=== PATIENT | female | born 1955 | race Caucasian/White ===

== ENCOUNTER 2016-04-07 19:23 | Emergency (ER) | payer OTHER ==
[~2016-04-07] VITALS: Ht 165.1 cm; Wt 47.7 kg
[2016-04-07 19:43] VITALS: BP 149/76; PULSE 78; RESP 18; O2SAT 94
[2016-04-07 20:00] LABS: BASOPHILS % (AUTO) 0.3 % (0-3); EOSINOPHILS % (AUTO) 1.2 % (0-5); MONOCYTES % (AUTO) 9.2 % (4-12); Mean Corpuscular Hemoglobin 31.4 pg (27.0-35.0); Mean Corpuscular Volume 92.3 fL (81-100); NEUTROPHILS % (AUTO) 76.8 % (40-74); Platelet Count 213 bil/L (150-400)
[2016-04-07 20:22] LABS: TROPONIN T < 0.010 ug/L (0.0-0.011)
--- NOTE | 2016-04-07 20:23 | ED.REPORT ---
HPI-Chest Pain 40 and Over Date of Service Apr 07, 2016 ED Provider: Kavin Woods MD Pt is a 60 y/o relatively healthy female presenting to the ED c/o waxing and waning substernal chest pressure onset 1330 today. She c/o associated SOB, nausea, dizziness, lightheadedness, chills, fatigue, dyspnea on exertion, mild cough. Pt denies fever, diaphoresis, vomiting, abdominal pain. She finished a course of antibiotics for bacterial sinusitis 1 week ago. She is a former long time smoker who quit 3 weeks ago. Nursing Notes Stated Complaint: DIZZY,NAUSEA,PRESSURE IN STERNUM Chief Complaint: Chest Pain Nursing Notes Reviewed: Yes Allergies: Coded Allergies: No Known Allergies (Unverified , 04/07/16) General Time Seen by MD: 20:23 Chief Complaint Chest pressure Hx Obtained From: Patient Arrived By: Walk-in Sudden in Onset?: Yes Onset Occurred: 5 - 8 hours ago Symptom Duration: Waxes and wanes Location: : Substernal Quality: Pressure Radiation: : Does not radiate Migration/Movement: Reports: None Severity: Current: Mild Severity: Maximum: Mild Similar Sx Previous: No Risk Factors HEART Score HEART for MACE: Mod index of susp (1), Low index of susp (0), Normal ECG (0), Age 45 - 65 (1), 1-2 CAD risk factors (1), < or = to NL troponin (0) HEART for MACE Score: 0-3 (low risk 0.9%-1.7%) Past Medical History Past Medical History Denies Past Surgical History None reported Smoking History Former Smoker Ambulatory Status Independent Review of Systems Constitutional: Reports: Chills, Fatigue, Denies: Fever Respiratory: Reports: Non-productive cough Cardiovascular: Reports: Chest pain, Dyspnea on exertion GI: Reports: Nausea, Denies: Abdominal pain, Diarrhea, Vomiting Skin: Denies Diaphoresis Neurologic: Reports: Dizziness, Lightheaded Complete sys rev & neg: except as marked. Physical Exam Initial Vital Signs Vital Signs (First) Date Time Temp Pulse Resp B/P Pulse Ox O2 Delivery O2 Flow Rate FiO2 04/07/16 19:43 37.1 78 18 149/76 94 Room Air Initial VS: Reviewed Head / Eyes: Atraumatic, Normocephalic, PERRL ENT: Mucous membranes moist, Conjunctiva normal, No scleral icterus Neck: Supple, Full range of motion Extremities: Vascular intact, Neuro intact, No swelling, No tenderness Skin: Warm, Dry, No cyanosis Neurologic: Alert, Oriented, Nonfocal Psychiatric: Mood/affect normal, Behavior normal, Normal thought content General/Constitutional: Awake, Alert, No acute distress, Well appearing, Cooperative, Not toxic appearing Temp at 21:21 = 37.1 C Respiratory / Chest: Atraumatic, No respiratory distress, No retractions, No stridor, No chest tenderness, No chest wall deformity, No crepitus Very fine rales at bases medially, bilaterally Cardiovascular: Heart rate NL, Regular rhythm, Heart sounds NL, No gallop, No murmurs, No rubs, Cap refill not delayed, Peripheral circulation NL Abdomen: Atraumatic, Soft, Non-tender, No guarding, No rebound, No distention, No palpable mass Interpretation & Diagnostics Lab Results Interpretation Result Diagram: 04/07/16 1950 04/07/16 1950 Test 04/07/16 19:50 White Blood Count 7.5th/mm3 (3.8-10.1) Red Blood Count 4.55mil/mm3 (3.90-5.20) Hemoglobin 14.3g/dL (12.0-15.6) Hematocrit 42.0% (35.0-46.0) Mean Corpuscular Volume 92.3fL (81-100) Mean Corpuscular Hemoglobin 31.4pg (27.0-35.0) Mean Corpuscular Hemoglobin Concent 34.0% (32.0-37.0) Red Cell Distribution Width 12.9% (12.3-15.4) Platelet Count 213bil/L (150-400) Neutrophils (%) (Auto) 76.8% (40-74) Lymphocytes (%) (Auto) 12.4% (14-46) Monocytes (%) (Auto) 9.2% (4-12) Eosinophils (%) (Auto) 1.2% (0-5) Basophils (%) (Auto) 0.3% (0-3) Sodium Level 139mEq/L (134-144) Potassium Level 3.9mEq/L (3.5-5.2) Chloride Level 99mEq/L (97-108) Carbon Dioxide Level 25mmol/L (18-29) Blood Urea Nitrogen 8mg/dL (6-24) Creatinine 0.70mg/dL (0.57-1.00) Estimat Glomerular Filtration Rate 123mL/min (>59) Glucose Level 117mg/dL (60-99) Calcium Level 9.6mg/dL (8.5-10.1) Magnesium Level 2.1mg/dL (1.6-2.6) Total Bilirubin 0.2mg/dL (0.0-1.2) Aspartate Amino Transf (AST/SGOT) 21U/L (0-50) Alanine Aminotransferase (ALT/SGPT) 20U/L (0-32) Alkaline Phosphatase 91U/L (25-165) Troponin T < 0.010ug/L (0.0-0.011) Total Protein 7.3g/dL (6.4-8.4) Albumin 4.5g/dL (3.4-5.0) Hold Pardo Top Tube Received (Received) ECG Interpretation ECG Interpretation: Sinus rhythm rate 78 LAFB Probable LVH Time: 19:45 Interpreted by: ED physician Normal ECG Interpretation: No acute ischemic changes X-Ray Chest Interpretation Chest Xray Interpretation: IMPRESSION: 1. Left basilar infiltrate and atelectasis. 2. COPD. Dictated by: Maddy Alvarez M.D. on 04/07/2016 at 20:22 Approved by: Maddy Alvarez M.D. on 04/07/2016 at 20:24 View: Portable, 1 view Interpretation / Wet Read by: Interpret - Radiologist Re-Eval/Medical Decision Time of Eval: 21:26 Re-Evaluation/Progress Note: Pt rechecked. Discussed imaging and lab results. Informed pt of plan for treatment. Pt understands and agrees with plan for treatment. F/U instructions and RTER warnings given. All questions addressed. Counseled Regarding: Diagnosis, Lab results, Need for follow-up, When/why to return to ED Discharge & Departure Primary Impression: Pneumonia involving left lung Pneumonia type: due to unspecified organism Lung location: lower lobe of lung Qualified Code: J18.9 - Pneumonia, unspecified organism Additional Impression: COPD (chronic obstructive pulmonary disease) COPD type: unspecified COPD Qualified Code: J44.9 - Chronic obstructive pulmonary disease, unspecified Disposition: Home Discharge Condition All VS Reviewed: Yes Condition: Stable Patient Instructions: Chest Pain (ED), Chronic Obstructive Pulmonary Disease ( ED) Additional Instructions: Your chest x-ray today showed signs of COPD and a small density in the left lower lung which could represent pneumonia. Your labs and EKG were normal. There is no sign of heart attack. I am prescribing Doxycycline for the possible pneumonia. Take the full course as directed. Take 800 mg Ibuprofen every 8 hours as needed for pain. Return to the emergency department if you experience increased work of breathing , increased chest pain, high fever, profound weakness, or for other new or worsening symptoms. Follow up with a primary care doctor later this week if you do not seem to be improving. Referrals: [facility] Scribe Attestation Portions of this note were transcribed by Manjit Ferrer. I, Dr. Woods personally performed the history, physical exam and medical decision-making; I reviewed and confirmed the accuracy of the information in the transcribed note. Signed by Mary Lou Welch, 04/07/16 2199 Kavin Woods MD Apr 07, 2016 20:23 MANJIT FERRER Apr 07, 2016 20:30
--- NOTE | 2016-04-07 20:26 | DRSVH ---
PROCEDURE: X-RAY CHEST ONE VIEW, PORTABLE ([id number]) INDICATIONS: CHEST PAIN TECHNIQUE: One view of the chest was acquired. COMPARISON: None. FINDINGS: Surgical changes and devices: None. Lungs and pleura: There is hyperinflation consistent with COPD. Left basilar infiltrate and atelecta sis. No pleural effusions or pneumothorax. Mediastinum: Mediastinal contours appear normal. Heart size is normal. Bones and chest wall: No suspicious bony lesions. Overlying soft tissues appear unremarkable. IMPRESSION: 1. Left basilar infiltrate and atelectasis. 2. COPD. Dictated by: Maddy Alvarez M.D. on 04/07/2016 at 20:22 Approved by: Maddy Alvarez M.D. on 04/07/2016 at 20:24
[2016-04-07 20:32] LABS: Magnesium 2.1 mg/dL (1.6-2.6)
[2016-04-07 20:56] VITALS: BP 149/68; PULSE 68; RESP 15; O2SAT 92
[2016-04-07] MEDS ORDERED: DOXY100C43 PO (21:35)
[2016-04-07 21:47] VITALS: BP 135/67; PULSE 61; RESP 16; O2SAT 93
== END 2016-04-07 21:47 | disposition home or self-care (01) ==
LOC: SED 19:23
DX: J18.9 Pneumonia, unspecified organism (principal); J44.9 Chronic obstructive pulmonary disease, unspecified; R11.0 Nausea; Z87.891 Personal history of nicotine dependence